=== PATIENT | male | born 1985 | race Caucasian/White ===

== ENCOUNTER 2024-05-22 06:03 | Emergency (ER) | payer SELFPAY ==
[2024-05-22 06:07] VITALS: BP 128/84; PULSE 78; RESP 20; TEMP 36.4; O2SAT 97; BMI 23.0
--- NOTE | 2024-05-22 06:08 | XRR_ITS ---
PROCEDURE INFORMATION: Exam: XR Abdomen Exam date and time: 05/22/2024 6:20 AM Age: 38 years old Clinical indication: Constipation; Additional info: Abd pain TECHNIQUE: Imaging protocol: Radiologic exam of the abdomen. Views: 2 Views. Upright and supine views. COMPARISON: CR XR chest 2V* [id number] 12/16/2017 11:22 AM FINDINGS: Gastrointestinal tract: Moderate colonic fecal material suggesting constipation. Intraperitoneal space: Normal. No free air. Bones/joints: Unremarkable for age. XR/XR acute abdomen series [id number] IMPRESSION: No acute findings.
--- NOTE | 2024-05-22 06:09 | ED_ITS ---
HPI - Abdominal Pain 2 General: Chief Complaint: Abdominal Pain Stated Complaint: constipated Time Seen by Provider: 05/22/24 06:07 History of Present Illness: 38-year-old male presents emergency room clinic with vague abdominal pains and had a bowel movement the last couple of days he is worried about constipation. Denies any medic easier melena. He did take some [id number] laxative yesterday which did not help relieve his symptoms. He has been nauseous but not had any vomiting. Associated Symptoms: Reports constipation; Denies chills, dysuria and fever(s) Related Data Previous Rx's ?Medication ?Instructions ?Recorded lactulose 10 gram/15 mL oral 30 ml PO Q2H PRN constipa tion 72 05/22/24 solution (Generlac) hours #1,080 mL Allergies Allergy/AdvReac Type Severity Reaction Status Date / Time cephalexin (From Keflex) Allergy Unknown Verified 05/22/24 06:14 Review of Systems 2 Const: Denies: fever(s) or chills Card: Denies: chest pain Resp: Denies: dyspnea GI: Reports: abdominal pain and constipation : Denies: dysuria, urinary frequency or urinary urgency Musc: Denies: neck pain or back pain Skin/Breast: Denies: rash Physical Exam 2 Const: COMMON NORMALS: no acute distress GENERAL APPEARANCE: cooperative and comfortable ORIENTATION/CONSCIOUSNESS: Yes awake, Yes oriented to person, Yes oriented to place and Yes oriented to time HENMT: COMMON NORMALS: normocephalic, atraumatic and hearing grossly normal bilaterally HEAD & SCALP: normocephalic and atraumatic Resp: COMMON NORMALS: normal respiratory effort, No retractions, No use of accessory muscles and clear to auscultation bilaterally AUSCULTATION: clear to auscultation bilaterally Cardio: COMMON NORMALS: regular rate, regular rhythm and No murmurs present (Cardio) RATE: regular rate RHYTHM: regular rhythm GI: COMMON NORMALS: Soft to palpation and No hepatosplenomegaly present A USCULTATION: Yes normoactive bowel sounds PALPATION: Yes Soft to palpation, No Tenderness to palpation present (GI), No Guarding due to palpation present (GI) and Yes No hepatosplenomegaly present Extremity: COMMON NORMALS: normal to inspection, capillary refill normal, no clubbing, cyanosis or edema, no calf tenderness and no pedal edema Neuro: SENSORIUM/ORIENTATION: Yes oriented to person, Yes oriented to place and Yes oriented to time Skin: COMMON NORMALS: no rashes or lesions noted GENERAL SKIN EXAM: no rashes or lesions noted Course 2 Vital Signs: Vital signs: Vital Signs Temperature 97.5 F L 05/22/24 06:07 Pulse Rate 80 05/22/24 07:58 Respiratory Rate 18 05/22/24 06:41 Blood Pressure 140/70 05/22/24 07:58 Pulse Oximetry 98 05/22/24 07:58 Oxygen Delivery Me thod Room Air 05/22/24 06:07 MDM - Abdominal Pain Medical Decision Making Moderate relief with enema given in the department. Will discharge patient home lactulose 30 mL every 2 hours till desired laxative check effect achieved. Follow-up with primary care if has persistent problems they can advise him on long-term bowel regimen to prevent constipation. Lab Data I reviewed the patient's lab results. 05/22/24 06:15 05/22/24 06:15 Labs/Radiology: Radiology Impressions Chest/Abdomen X-ray 05/22/24 06:08 IMPRESSION: No acute findings. Laboratory Results WBC 9.36 10^3/uL (3.29-11.43) 05/22/24 06:15 RBC 5.20 10^6/uL (3.85-5.65) 05/22/24 06:15 Hgb 15.90 g/dL (11.27-16.99) 05/22/24 06:15 Hct 47.5 % (37-53) 05/22/24 06:15 MCV 91.3 fl (82-101) 05/22/24 06:15 MCH 30.6 pg (27-33) 05/22/24 06:15 MCHC 33.5 g/dL (30-55) 05/22/24 06:15 RDW 12.2 % (12.1-15.1) 05/22/24 06:15 Plt Count 181 10^3/cmm (157-399) 05/22/24 06:15 MPV 10.3 fL (7.4-10.4) 05/22/24 06:15 Neut % (Auto) 68.2 % 05/22/24 06:15 Lymph % (Auto) 21.2 % 05/22/24 06:15 [place] % (Auto) 6.4 % 05/22/24 06:15 Eos % (Auto) 3.4 % 05/22/24 06:15 Baso % (Auto) 0.6 % 05/22/24 06:15 Neut # (Auto) 6.38 10^3/uL (1.8-7.7) 05/22/24 06:15 Lymph # (Auto) 2.0 10^3/uL (0.8-4.8) 05/22/24 06:15 [place] # (Auto) 0.6 10^3/uL (0.2-0.9) 05/22/24 06:15 Eos # (Auto) 0.3 10^3/uL (0.0-0.8) 05/22/24 06:15 Baso # (Auto) 0.1 10^3/uL (0.0-0.1) 05/22/24 06:15 Nucleated RBC % (auto) 0 % 05/22/24 06:15 Nucleated RBCs # 0.0 /100WBC 05/22/24 06:15 Sodium 137 mmol/L (136-145) 05/22/24 06:15 Potassium 4.2 mmol/L (3.5-5.1) 05/22/24 06:15 Chloride 101 mmol/L (98-107) 05/22/24 06:15 Carbon Dioxide 25 mmol/L (22-29) 05/22/24 06:15 Anion Gap 15.2 (5-19) 05/22/24 06:15 BUN 13 mg/dL (6-20) 05/22/24 06:15 Creatinine 0.9 mg/dL (0.7-1.2) 05/22/24 06:15 GFR Calculation 93.9 mL/min (90-130) 05/22/24 06:15 Glucose 116 mg/dL (65-115) H 05/22/24 06:15 Calculated Osmolality 285 mOsm/kg (285-295) 05/22/24 06:15 Calcium 9.5 mg/dL (8.5-10.5) 05/22/24 06:15 Total Bilirubin 0.4 mg/dL (0.15-1.2) 05/22/24 06:15 AST 38 U/L (0-40) 05/22/24 06:15 ALT 42 U/L (0-41) H 05/22/24 06:15 Alkaline Phosphatase 146 U/L (40-130) H 05/22/24 06:15 Total Protein 7.5 g/dL (6.6-8.7) 05/22/24 06:15 Albumin 4.2 g/dL (3.5-5.2) 05/22/24 06:15 Globulin 3.3 g/dL (1.3-4.6) 05/22/24 06:15 Lipase 24 U/L (13-60) 05/22/24 06:15 All radiology interpretation(s) finalized by discharge Discharge Plan Discharge Patient Disposition: Home Clinical Impression: Constipation Condition: Stable Prescriptions: New lactulose [Generlac] 10 gram/15 mL solution 30 ml PO Q2H PRN (Reason: constipation) 3 Days Qty: 1080 0RF Rx Instructions: until desired laxative effect Discharge Orders: Discharge ED (Routine); Ordered 05/22/24 Ordered By: Timothy Roy Discharge Diet: As Directed Discharge Activity: Increase activity as tolerated Patient Instructions: Constipation (ED), Opioid Safety, Pain Management Activity Restrictions/Additional Instructions: Thank you for choosing [facility] for your healthcare needs today. It is very important that you follow up as instructed or that you return to the Emergency Department should you have concerns or if your condition changes or worsens in any way. You were seen in the emergency room with complaint of abdominal discomfort. Laboratory tests are unremarkable plain x-rays of your abdomen showed significant moderate constipation. Recommend using lactulose as a laxative you can take 1 dose every 2 hours until desired effects achieved. If you have persistent difficulty with constipation follow-up your primary care doctor they can review long-term treatment strategies to prevent constipation issues. Print Language: [place] Coding Level of Care Code ED Clinical Training Coordinator for Ayse Caruso
[2024-05-22 06:11] VITALS: BP 128/84; PULSE 78; O2SAT 97
[2024-05-22 06:25] LABS: Basophils # 0.1 10^3/uL (0.0-0.1); Basophils % 0.6 %; Eosinophils # 0.3 10^3/uL (0.0-0.8); Eosinophils % 3.4 %; Hematocrit 47.5 % (37-53); Lymphocytes % 21.2 %; Mean Corpuscular HGB Conc 33.5 g/dL (30-55); Mean Corpuscular Hemoglobin 30.6 pg (27-33); Mean Corpuscular Volume 91.3 fl (82-101); Mean Platelet Volume 10.3 fL (7.4-10.4); Monocytes # 0.6 10^3/uL (0.2-0.9); Monocytes % 6.4 %; Neutrophils # 6.38 10^3/uL (1.8-7.7); Neutrophils % 68.2 %; Nucleated Red Blood Cells % 0 %; Platelet Count 181 10^3/cmm (157-399); Red Cell Distribution Width 12.2 % (12.1-15.1); White Blood Count 9.36 10^3/uL (3.29-11.43)
[2024-05-22 06:41] VITALS: BP 124/80; PULSE 72; RESP 18; O2SAT 99
[2024-05-22 06:41] LABS: Alanine Aminotransferase 42 U/L (0-41); Albumin Level 4.2 g/dL (3.5-5.2); Alkaline Phosphatase 146 U/L (40-130); Anion Gap 15.2 (5-19); Aspartate Amino Transferase 38 U/L (0-40); Blood Urea Nitrogen 13 mg/dL (6-20); Calcium 9.5 mg/dL (8.5-10.5); Carbon Dioxide 25 mmol/L (22-29); Chloride 101 mmol/L (98-107); Creatinine Clr Calc Pharmacy 120.6457; Globulin 3.3 g/dL (1.3-4.6); Glomerular Filtration Rate 93.9 mL/min (90-130); Glucose 116 mg/dL (65-115); Lipase 24 U/L (13-60); Osmolality Calculated 285 mOsm/kg (285-295); Potassium 4.2 mmol/L (3.5-5.1); Sodium 137 mmol/L (136-145); Total Bilirubin 0.4 mg/dL (0.15-1.2); Total Protein 7.5 g/dL (6.6-8.7)
[2024-05-22 07:58] VITALS: BP 140/70; PULSE 80; O2SAT 98
== END 2024-05-22 07:59 | disposition home or self-care (01) ==
PROVIDERS: Emergency Provider Family Medicine
DX: K59.00 Constipation, unspecified (principal)
CPT/HCPCS: 74022; 80053; 83690; 85025; 99284